=== PATIENT | male | born 1960 | race Caucasian/White ===

== ENCOUNTER 2018-02-25 23:57 | Observation (INO) ==
[2018-02-26] MEDS ORDERED: Sod Chloride 0.9% Inj 1,000 ML IV.SIG SCH ×2 (01:45→05:00)
[2018-02-26 02:00] LABS: Baso % (Auto) 0.3 % (0.0-2.0); Eos % (Auto) 0.5 % (0.0-4.0); Hematocrit 47.1 % (39.0-51.0); Hemoglobin 16.1 gm/dL (13.0-17.0); Lymph # (Auto) 2.5 th/mm3 (1.0-4.8); Lymph % (Auto) 30.4 % (9.0-44.0); Mean Corpuscular HGB Conc 34.2 % (32.0-36.0); Mean Corpuscular Hemoglobin 31.2 pg (27.0-34.0); Mean Corpuscular Volume 91.3 fL (80.0-100.0); Mean Platelet Volume 7.4 fL (7.0-11.0); Mono # (Auto) 0.8 th/mm3 (0.0-0.9); Mono % (Auto) 9.2 % (0.0-8.0); Neut # (Auto) 4.9 th/mm3 (1.8-7.7); Neut % (Auto) 59.6 % (16.0-70.0); Platelet Count 203 th/mm3 (150-450); Red Blood Count 5.16 mil/mm3 (4.50-5.90); Red Cell Distribution Width 14.2 % (11.6-17.2); White Blood Count 8.2 th/mm3 (4.0-11.0)
--- NOTE | 2018-02-26 02:14 | ED ---
HPI General Chief complaint: Medical Clearance Stated complaint: Pos OD Time Seen by Provider: 02/26/18 01:16 Source: patient Mode of arrival: ambulatory Limitations: no limitations History of Present Illness HPI narrative: The patient is 57 years old and arrives to the ED via private vehicle. He reports drinking alcohol and abusing cocaine for the past 5 days. He reports not sleeping. He has epigastric pain as well as chest pain retrosternal in location. No radiation. No fever. Patient denies suicidal or homicidal ideation. He denies any similar prior conduct. Patient denies drug abuse otherwise. Associated symptoms include decreased appetite. Related Data Home Medications Medication Instructions Recorded Confirmed No Known Home Medications 02/26/18 02/26/18 Allergies Allergy/AdvReac Type Severity Reaction Status Date / Time No Known Allergies Allergy Verified 02/26/18 01:13 Review of Systems ROS: all other systems reviewed are negative [facility] Medical History Medical History Alcohol abuse (Acute) Cocaine abuse (Acute) Surgical History Surgical History H/O inguinal hernia repair (Acute) Social History Social History Substance History: Active Abuse Smoking Status: Current every day smoker Tobacco Type: Cigarettes How Often Do You Have a Drink Containing Alcohol: 4 or more times a week Recent Travel in [facility] within the Last 8 Weeks: No Recent Out of Country Travel within the Last 8 Weeks: No Substance Abuse Detail Crack/Cocaine: Substance Use Status: Active Route Used Substance Abuse: By Mouth and Inhalation Reason for Use: Get High Immunization History Tetanus Immunization: Unsure Exam Narrative Exam Narrative: GENERAL: 57-year-old male well-nourished well-developed mild distress SKIN: Focused skin assessment warm/dry. HEAD: Atraumatic. Normocephalic. EYES: Pupils equal and round. No scleral icterus. No injection or drainage. ENT: No nasal bleeding or discharge. Mucous membranes pink and moist. NECK: Trachea midline. No JVD. CARDIOVASCULAR: Regular rate and rhythm. No murmur appreciated. RESPIRATORY: No accessory muscle use. Clear to auscultation. Breath sounds equal bilaterally. GASTROINTESTINAL: Abdomen soft, non-tender, nondistended. Hepatic and splenic margins not palpable. MUSCULOSKELETAL: No obvious deformities. No clubbing. No cyanosis. No edema. NEUROLOGICAL: Awake and alert. No obvious cranial nerve deficits. Motor grossly within normal limits. Normal speech. PSYCHIATRIC: Patient denies suicidal/homicidal ideation. Course Initial Documented Vital Signs Temperature 98.3 F 10/16/18 00:35 Pulse Rate 114 H 02/26/18 00:35 Respiratory Rate 16 02/26/18 00:35 Blood Pressure 148/90 H 02/26/18 00:35 Pulse Oximetry 96 02/26/18 00:35 Last Documented Vital Signs Temperature 98.3 F 02/26/18 00:35 Pulse Rate 85 02/26/18 01:20 Respiratory Rate 18 02/26/18 01:20 Blood Pressure 148/90 H 02/26/18 00:35 Pulse Oximetry 100 02/26/18 01:20 Medical Decision Making MDM Narrative Medical decision making narrative: Patient arrives to the ED after a 5-day alcohol and cocaine binge. Workup reveals mild transaminitis as well as an elevated lipase. EKG shows ST elevations in multiple leads with LA depressions in multiple leads. This could reflect pericarditis. Strain from cocaine abuse is also considered. Patient received IV fluids and Ativan. Patient reassessed at about 4:10 AM and is found to be resting comfortably. Case discussed with hospitalist Dr. Vaca. Medical Screen Exam Complete: Yes Emergency Medical Condition: Yes Differential Diagnosis Differential Diagnosis: Coronary disease, cocaine side effects, pancreatitis, gastritis, alcoholism, rhabdomyolysis, kidney failure Lab Data Lab results reviewed: Yes I reviewed the patient's lab results. Result diagrams: 02/26/18 01:40 02/26/18 01:40 Lab Results 02/26/18 02/26/18 Range/Units 01:40 01:40 WBC 8.2 (4.0-11.0) th/mm3 RBC 5.16 (4.50-5.90) mil/mm3 Hgb 16.1 (13.0-17.0) gm/dL Hct 47.1 (39.0-51.0) % MCV 91.3 (80.0-100.0) fL MCH 31.2 (27.0-34.0) pg MCHC 34.2 (32.0-36.0) % RDW 14.2 (11.6-17.2) % Plt Count 203 (150-450) th/mm3 MPV 7.4 (7.0-11.0) fL Neut % (Auto) 59.6 (16.0-70.0) % Lymph % (Auto) 30.4 (9.0-44.0) % Lares % (Auto) 9.2 H (0.0-8.0) % Eos % (Auto) 0.5 (0.0-4.0) % Baso % (Auto) 0.3 (0.0-2.0) % Neut # (Auto) 4.9 (1.8-7.7) th/mm3 Lymph # (Auto) 2.5 (1.0-4.8) th/mm3 Lares # (Auto) 0.8 (0.0-0.9) th/mm3 Eos # (Auto) 0.0 (0.0-0.4) th/mm3 Baso # (Auto) 0.0 (0.0-0.2) th/mm3 WBC Differential . Differential Comment Auto diff final Sodium 139 (136-145) meq/L Potassium 3.8 (3.5-5.1) meq/L Chloride 102 (98-107) meq/L Carbon Dioxide 25.1 (21.0-32.0) meq/L Anion Gap 12 (5-15) meq/L BUN 7 (7-18) mg/dL Creatinine 0.84 (0.60-1.30) mg/dL Estimated GFR Greater than 89 (>89) mL/min Random Glucose 71 L (74-106) mg/dL Calcium 8.2 L (8.5-10.1) mg/dL Total Bilirubin 0.9 (0.2-1.0) mg/dL AST 178 H (15-37) U/L ALT 150 H (12-78) U/L Alkaline Phosphatase 97 (45-117) U/L Total Creatine Kinase 557 H (39-308) U/L CK-MB (CK-2) 4.2 H (0.5-3.6) ng/mL CK-MB (CK-2) % 0.8 (0.0-4.0) % Troponin I Less than 0.02 L (0.02-0.05) ng/mL Total Protein 8.2 (6.4-8.2) g/dL Albumin 3.9 (3.4-5.0) g/dL Lipase 766 H (73-393) U/L Serum Alcohol 144 H (0-5) mg/dL ECG Data Attestation: I personally reviewed and interpreted this ECG as follows: Discharge Plan Discharge Disposition Patient Disposition: 30 Still Patient Physicians Team ED Provider: Timbo Bowers Primary Care Provider: Primary Care Sarahi Casillas Attending Provider: Latha Vaca Status ED Status: Admitted Observation Patient
[2018-02-26 02:21] LABS: Alanine Aminotransferase 150 U/L (12-78); Albumin 3.9 g/dL (3.4-5.0); Anion Gap 12 meq/L (5-15); Aspartate Aminotransferase 178 U/L (15-37); Blood Urea Nitrogen 7 mg/dL (7-18); Calcium 8.2 mg/dL (8.5-10.1); Carbon Dioxide 25.1 meq/L (21.0-32.0); Chloride 102 meq/L (98-107); Glomerular Filtration Rate Greater Than 89 mL/min (>89); Glucose,Random 71 mg/dL (74-106); Lipase 766 U/L (73-393); Potassium 3.8 meq/L (3.5-5.1); Sodium 139 meq/L (136-145)
[2018-02-26 02:25] LABS: Alkaline Phosphatase 97 U/L (45-117); Creatine Kinase 557 U/L (39-308); Total Protein 8.2 g/dL (6.4-8.2)
[2018-02-26 02:30] LABS: Alcohol 144 mg/dL (0-5)
[2018-02-26 02:42] LABS: CKMB Percent 0.8 % (0.0-4.0); Creatine Kinase MB 4.2 ng/mL (0.5-3.6)
[2018-02-26] MEDS ORDERED: Bisacodyl 10 MG Supp RECTAL PRN (04:51)
[2018-02-26] MEDS ORDERED: Acetaminophen 325 MG Tablet PO PRN (04:51)
[2018-02-26] MEDS ORDERED: Haloperidol Inj 5 MG/ML Ampul IV.PUSH PRN ×2 (04:54→05:01)
[2018-02-26] MEDS: Sod Chloride 0.9% Inj 1,000 ML IV.CONT SCH ×2 (05:03→15:35)
[2018-02-26 08:50] LABS: Bilirubin,Urine Negative (Negative); Clarity,Urine Clear (Clear); Color,Urine Amber (Yellw/Straw); Glucose,Urine (UA) Negative (Negative); Hyaline Casts,Urine 1 /lpf (0-3); Leukocyte Esterase,Urine Negative (Negative); Mucus,Urine Many /lpf (Occasional); Nitrite,Urine Negative (Negative); Specific Gravity,Urine 1.016 (1.002-1.035)
[2018-02-26] MEDS: Folic Acid 1 MG Tablet PO SCH (08:55)
[2018-02-26] MEDS: Multivitamin/Minerals Therapeutic Tablet PO SCH (08:55)
[2018-02-26] MEDS: Senna/Docusate Sodium 8.6/50 MG Tablet PO SCH ×2 (08:55→20:32)
[2018-02-26 08:57] LABS: Creatine Kinase 434 U/L (39-308)
[2018-02-26 09:05] LABS: Amphetamine Screen,Urine Neg (Neg); Barbiturate Screen,Urine Neg (Neg); Cannabinoid Screen,Urine Neg (Neg); Cocaine Screen,Urine Pos (Neg)
[2018-02-26] MEDS: LORazepam 1 MG Tablet PO PRN ×2 (09:05→16:22)
[2018-02-26 09:08] LABS: Opiate Screen,Urine Neg (Neg)
[2018-02-26 09:10] LABS: CKMB Percent 0.8 % (0.0-4.0); Creatine Kinase MB 3.5 ng/mL (0.5-3.6)
[2018-02-26 13:26] LABS: Creatine Kinase 370 U/L (39-308)
[2018-02-26 13:37] LABS: CKMB Percent 0.6 % (0.0-4.0); Creatine Kinase MB 2.4 ng/mL (0.5-3.6)
--- NOTE | 2018-02-26 15:37 | P.HPIM ---
History of Present Illness Primary Care Physician: No Primary Care Physician History of Present Illness: This patient is a 57-year-old male with a history of tobacco, cocaine , and alcohol abuse. He presented to our emergency department yesterday with complaints of fatigue yesterday. He says that he had spent the past 5 days been drinking and snorting cocaine. Yesterday he had a few episodes where he felt severely weak and nearly passed out. He did have some epigastric pain and atypical chest pain yesterday. He denies having any fevers and chills, complains of nausea however did not have any episodes of vomiting. The patient is a very poor historian. He is currently living with his father in [place] however his father is upset with him given the patient's current problems with alcohol and cocaine and does not want him to return to his home. Patient denies any shortness of breath or current chest pain, no diarrhea. Past medical history no sniffing a past medical history as per the patient Family history hypertension Social history patient is a [id number]-cafm smoking history, drinks 1 pint of hard alcohol per day, has been snorting cocaine for years. Allergies the patient does not have any known drug allergies Medications the patient does not take any medications. Review of Systems All other systems reviewed negative except as stated in HPI PMFSH - History History Provided By: Patient - Medical History Medical History: Medical History (Last Updated 02/26/18 @ 00:37 by Meseret Simons) Alcohol abuse Cocaine abuse - Surgical History Surgical History: Surgical History (Last Updated 02/26/18 @ 00:37 by Meseret Simons) H/O inguinal hernia repair - Tobacco History Second Hand Smoke Exposure: Yes Tobacco Use In Past 30 Days: Yes Smoking Status: Former smoker Tobacco Type: Cigarettes - Alcohol History How Often Do You Have a Drink Containing Alcohol: 2 to 3 times a week - Substance Use History Substance History: Active Abuse - Substance Use Type Crack/Cocaine Status: Active Route Used: Inhalation Frequency: everyday for the last 5 days Reason for Use: Calm Down - Travel History Recent Travel in the [place] Within the Last 8 Weeks: No Recent Travel Out of the Country Within the Last 8 Weeks: No - Immunization History Tetanus Immunization: Unsure Medications and Allergies Active Medications: Active Medications Acetaminophen (Tylenol) 650 mg PO Q4H PRN PRN Reason: Temp > 100.4 Al Hydroxide/Mg Hydroxide (Milk Of Magnesia Liq) 30 ml PO Q12H PRN PRN Reason: Mild Constipation Bisacodyl (Dulcolax Supp) 10 mg RECTAL DAILY PRN PRN Reason: SEVERE CONSITIPATION Flumazenil (Romazecon Inj) 0.2 mg IV.PUSH Q1M PRN PRN Reason: OVERSEDATION Folic Acid (Folic Acid) 1 mg PO DAILY SHIRA Stop: 03/03/18 08:59 Last Admin: 02/26/18 08:55 Dose: 1 mg Haloperidol Lactate (Haldol Inj) 1 mg IV.PUSH Q15M PRN PRN Reason: for severe agitation Sodium Chloride (Ns Inj) 1,000 mls @ 0 mls/hr IV.SIG BOLUS SHIRA Stop: 02/27/18 01:46 Sodium Chloride (Ns Inj) 1,000 mls @ 0 mls/hr IV.SIG BOLUS SHIRA Stop: 02/27/18 05:01 Sodium Chloride (Ns Inj) 1,000 mls @ 100 mls/hr IV.CONT .Q10H SHIRA Last Admin: 02/26/18 05:03 Dose: 100 mls/hr Lactulose (Lactulose Liq) 30 ml PO DAILY PRN PRN Reason: SEVERE CONSITIPATION Lorazepam (Ativan) 1 mg PO Q4H PRN PRN Reason: for CIWA 8-10 Last Admin: 02/26/18 09:05 Dose: 1 mg Lorazepam (Ativan) 2 mg PO Q2H PRN PRN Reason: for CIWA 11-14 Lorazepam (Ativan Inj) 2 mg IV.PUSH Q2H PRN PRN Reason: for CIWA 11-14 Lorazepam (Ativan Inj) 2 mg IV.PUSH Q1H PRN PRN Reason: for CIWA 15-20 Lorazepam (Ativan Inj) 2 mg IV.PUSH Q15M PRN PRN Reason: for CIWA > 20 Lorazepam (Ativan Inj) 1 mg IV.PUSH Q4H PRN PRN Reason: for CIWA 8-10 Last Admin: 02/26/18 08:09 Dose: 1 mg Multivitamins/Minerals (Theragran-M) 1 tab PO DAILY SHIRA Stop: 03/03/18 08:59 Last Admin: 02/26/18 08:55 Dose: 1 tab Ondansetron HCl (Zofran Inj) 4 mg IV.PUSH Q6H PRN PRN Reason: NAUSEA OR VOMITING Senna/Docusate Sodium (Harriet-Colace) 1 tab PO BID [facility] Last Admin: 02/26/18 08:55 Dose: 1 tab Sennosides (Senokot) 17.2 mg PO Q12H PRN PRN Reason: Moderate Constipation Sodium Chloride (Ns Flush) 2 ml IV.FLUSH PRN PRN PRN Reason: FLUSH AFTER USING IV ACCESS Thiamine HCl (Vitamin B1) 100 mg PO DAILY [facility] Last Admin: 02/26/18 08:55 Dose: 100 mg Allergies Allergy/AdvReac Type Severity Reaction Status Date / Time No Known Allergies Allergy Verified 02/26/18 01:13 Home Medications Medication Instructions Recorded Confirmed Type No Known Home Medications 02/26/18 02/26/18 History Exam Vital signs: Vital Signs 02/26/18 00:35 02/26/18 01:20 02/26/18 04:50 Temperature 98.3 F Pulse Rate 114 H 85 82 Respiratory Rate 16 18 16 Blood Pressure 148/90 H 132/89 Pulse Oximetry 96 100 98 02/26/18 07:45 02/26/18 08:36 02/26/18 08:58 Temperature Pulse Rate 98 H 92 H 94 H Respiratory Rate 16 Blood Pressure 125/84 134/83 Pulse Oximetry 96 97 02/26/18 09:00 02/26/18 10:00 02/26/18 10:30 Temperature Pulse Rate 90 102 H 94 H Respiratory Rate 16 17 Blood Pressure 134/83 128/79 Pulse Oximetry 96 98 02/26/18 10:39 02/26/18 11:00 02/26/18 11:34 Temperature Pulse Rate 98 H 94 H 92 H Respiratory Rate 16 18 15 Blood Pressure 128/79 122/72 Pulse Oximetry 95 02/26/18 12:00 Temperature Pulse Rate 94 H Respiratory Rate 15 Blood Pressure Pulse Oximetry 96 Intake & Output 02/25/18 02/26/18 02/26/18 18:59 06:59 18:59 Output Total 300 / 300 Balance -300 / -300 Weight 60.781 kg 60.78 kg Output: Urine 300 / 300 Other: Weight On Admission 60.78 kg Narrative: General patient appears slightly agitated HEENT extraocular movements are intact, clear oropharyngeal mucosa, no JVD Cardiovascular S1-S2 audible, RRR, no murmurs rubs or gallops Respiratory clear to auscultation bilaterally Abdomen soft, nontender, nondistended, normal bowel sounds Extremities patient has some tremors noted in bilateral upper extremities when he is asked to extend his upper extremity's. Neuro cranial nerves II through XII intact Results - Labs CBC & Chem 7: 02/26/18 01:40 02/26/18 01:40 Labs: Short CBC 02/26/18 Range/Units 01:40 WBC 8.2 (4.0-11.0) th/mm3 Hgb 16.1 (13.0-17.0) gm/dL Hct 47.1 (39.0-51.0) % Plt Count 203 (150-450) th/mm3 BMP 02/26/18 01:40 Sodium 139 Potassium 3.8 Chloride 102 Carbon Dioxide 25.1 BUN 7 Creatinine 0.84 Calcium 8.2 L Cardiac Enzymes 02/26/18 02/26/18 02/26/18 Range/Units 01:40 08:00 12:41 Total Creatine Kinase 557 H 434 H 370 H (39-308) U/L CK-MB (CK-2) 4.2 H 3.5 2.4 (0.5-3.6) ng/mL Troponin I Less than 0.02 L Less than 0.02 L Less than 0.02 L (0.02-0.05) ng/mL Liver Function 02/26/18 Range/Units 01:40 Total Bilirubin 0.9 (0.2-1.0) mg/dL AST 178 H (15-37) U/L ALT 150 H (12-78) U/L Alkaline Phosphatase 97 (45-117) U/L Albumin 3.9 (3.4-5.0) g/dL Urine 02/26/18 Range/Units 08:20 Urine Color Barbra (Yellw/Straw) Urine Clarity Clear (Clear) Urine pH 5.0 (5.0-8.5) Ur Specific [place] 1.016 (1.002-1.035) Urine Protein 100 H (Neg-Trace) mg/dL Urine Glucose (UA) Negative (Negative) mg/dL Caprini VTE Risk Assessment Caprini VTE Risk Assessment: No/Low Risk (score <= 1) Caprini Risk Assessment Model: Point Value = 1 Point Value = 2 Point Value = 3 Point Value = 5 Age 41-60 Minor surgery BMI > 25 kg/m2 Swollen legs Varicose veins or History of unexplained or recurrent spontaneous Oral contraceptives or hormone replacement Sepsis (< 1 month) Serious lung disease, including pneumonia (< 1 month) Abnormal pulmonary function Acute myocardial infarction Congestive heart failure (< 1 month) History of inflammatory bowel disease Medical patient at bed rest Age 61-74 Arthroscopic surgery Major open surgery (> 45 min) Laparoscopic surgery (> 45 min) Malignancy Confined to bed (> 72 hours) Immobilizing plaster cast Central venous access Age >= 75 History of VTE Family history of VTE Factor V Leiden Prothrombin [id number] Lupus anticoagulant Anticardiolipin antibodies Elevated serum homocysteine Heparin-induced thrombocytopenia Other congenital or acquired thrombophilia Stroke (< 1 month) Elective arthroplasty Hip, pelvis, or leg fracture Acute spinal cord injury (< 1 month) Prophylaxis Regimen: Total Risk Factor Score Risk Level Prophylaxis Regimen 0-1 Low Early ambulation 2 Moderate Order ONE of the following: *Sequential Compression Device (SCD) *Heparin 5000 units SQ BID 3-4 Higher Order ONE of the following medications: *Heparin 5000 units SQ TID *Enoxaparin/Lovenox 40 mg SQ daily (WT < 150 kg, CrCl > 30 mL/min) *Enoxaparin/Lovenox 30 mg SQ daily (WT < 150 kg, CrCl > 10-29 mL/min) *Enoxaparin/Lovenox 30 mg SQ BID (WT < 150 kg, CrCl > 30 mL/min) AND/OR *Sequential Compression Device (SCD) 5 or more Highest Order ONE of the following medications: *Heparin 5000 units SQ TID (Preferred with Epidurals) *Enoxaparin/Lovenox 40 mg SQ daily (WT < 150 kg, CrCl > 30 mL/min) *Enoxaparin/Lovenox 30 mg SQ daily (WT < 150 kg, CrCl > 10-29 mL/min) *Enoxaparin/Lovenox 30 mg SQ BID (WT < 150 kg, CrCl > 30 mL/min) AND *Sequential Compression Device (SCD) Assessment and Plan - Plan This patient is a 57-year-old male with a extensive history of tobacco, alcohol , and cocaine use. Patient presented after a 5-day binge of alcohol and cocaine use. He felt severely weak and presented to our emergency department for help. 1. Chest pain likely secondary to cocaine use 2. Elevated lipase 3. Polysubstance abuse 4. Alcohol withdrawal Patient is currently chest pain-free EKG shows normal sinus rhythm no significant acute ST segment or T wave changes. CPK was elevated which is showing a downtrend, 3 sets of troponins are negative. The patient's chest pain is likely epigastric in nature and possibly also due to cocaine use. Lipase was elevated at 766. The patient does not have any significant abdominal pain on physical examination and has a good appetite. He is requesting a p.o. diet. I will repeat the patient's lipase level and start a p.o. diet. Patient was counseled extensively by me on his tobacco, alcohol, and cocaine use. Patient states that he wants help and is not going to use once he leaves the hospital. Case management will be consulted as the patient currently will not have a place to go after he is discharged. Patient's last drink was yesterday, on physical examination mild tremors are apparent. CIWA protocol was initiated, continue IV fluids and multivitamin, thiamine, folate. Patient is ambulatory, no pharmacotherapy for DVT prophylaxis. H&P: Quality - VTE Deep Vein Thrombosis/Pulmonary Embolism Present on Admission: No
--- NOTE | 2018-02-26 15:45 | ECG ---
Date Performed: 02/26/2018 Time Performed: 01:40:36 PTAGE: 57 years EKG: Sinus rhythm POSSIBLE LEFT ATRIAL ENLARGEMENT EARLY REPOLARIZATION BORDERLINE ECG NO PREVIOUS TRACING DOCTOR: Jesús Hanna Interpretating Date/Time 02/26/2018 15:44:09
--- NOTE | 2018-02-26 15:46 | ECG ---
Date Performed: 02/26/2018 Time Performed: 08:02:53 PTAGE: 57 years EKG: Sinus rhythm WITH SINUS ARRHYTHMIA EARLY REPOLARIZATION BORDERLINE ECG PREVIOUS TRACING : 02/26/2018 01.40 Since the previous tracing, no significant change noted DOCTOR: Jesús Hanna Interpretating Date/Time 02/26/2018 15:44:50
[2018-02-26] MEDS: Dextrose 5%/NaCl 0.9% Inj 1,000 ML IV.CONT SCH (16:10)
[2018-02-26 19:39] VITALS: O2SAT 96
[2018-02-27] MEDS: Dextrose 5%/NaCl 0.9% Inj 1,000 ML IV.CONT SCH ×2 (02:13→12:12)
[2018-02-27 04:28] LABS: Baso % (Auto) 0.5 % (0.0-2.0); Eos # (Auto) 0.1 th/mm3 (0.0-0.4); Eos % (Auto) 2.1 % (0.0-4.0); Hematocrit 41.7 % (39.0-51.0); Hemoglobin 14.3 gm/dL (13.0-17.0); Lymph # (Auto) 1.7 th/mm3 (1.0-4.8); Lymph % (Auto) 27.7 % (9.0-44.0); Mean Corpuscular HGB Conc 34.4 % (32.0-36.0); Mean Corpuscular Hemoglobin 31.8 pg (27.0-34.0); Mean Corpuscular Volume 92.4 fL (80.0-100.0); Mean Platelet Volume 7.6 fL (7.0-11.0); Mono # (Auto) 0.6 th/mm3 (0.0-0.9); Mono % (Auto) 9.3 % (0.0-8.0); Neut # (Auto) 3.6 th/mm3 (1.8-7.7); Neut % (Auto) 60.4 % (16.0-70.0); Platelet Count 146 th/mm3 (150-450); Red Blood Count 4.51 mil/mm3 (4.50-5.90); Red Cell Distribution Width 14.2 % (11.6-17.2)
[2018-02-27 05:11] LABS: Alanine Aminotransferase 116 U/L (12-78); Alkaline Phosphatase 75 U/L (45-117); Anion Gap 6 meq/L (5-15); Aspartate Aminotransferase 125 U/L (15-37); Blood Urea Nitrogen 8 mg/dL (7-18); Calcium 7.8 mg/dL (8.5-10.1); Carbon Dioxide 26.4 meq/L (21.0-32.0); Chloride 107 meq/L (98-107); Glomerular Filtration Rate Greater Than 89 mL/min (>89); Glucose,Random 105 mg/dL (74-106); Potassium 3.9 meq/L (3.5-5.1); Sodium 139 meq/L (136-145); Total Protein 6.4 g/dL (6.4-8.2)
[2018-02-27] MEDS: Folic Acid 1 MG Tablet PO SCH (08:34)
[2018-02-27] MEDS: Senna/Docusate Sodium 8.6/50 MG Tablet PO SCH (08:34)
[2018-02-27] MEDS: Multivitamin/Minerals Therapeutic Tablet PO SCH (08:34)
[2018-02-27 08:37] VITALS: RESP 18
[2018-02-27 12:01] VITALS: BP 129/77; PULSE 71; TEMP 98.3
--- NOTE | 2018-02-27 13:16 | P.DS ---
Date of admission: 02/26/18 04:50 Primary care physician: No Primary Care Physician Attending physician on discharge: Dr. Purdy Brief History from admission: This patient is a 57-year-old male with a history of tobacco, cocaine , and alcohol abuse. He presented to our emergency department yesterday with complaints of fatigue yesterday. He says that he had spent the past 5 days been drinking and snorting cocaine. Yesterday he had a few episodes where he felt severely weak and nearly passed out. He did have some epigastric pain and atypical chest pain yesterday. He denies having any fevers and chills, complains of nausea however did not have any episodes of vomiting. The patient is a very poor historian. He is currently living with his father in [place] however his father is upset with him given the patient's current problems with alcohol and cocaine and does not want him to return to his home. Patient denies any shortness of breath or current chest pain, no diarrhea. Past medical history no sniffing a past medical history as per the patient Family history hypertension Social history patient is a [id number] smoking history, drinks 1 pint of hard alcohol per day, has been snorting cocaine for years. DS: Medications - Discharge Medications Prescriptions: chlordiazepoxide HCl 10 mg PO Q8H PRN #30 cap PRN Reason: Alcohol Withdrawal folic acid 1 mg PO DAILY #30 tab hrqtzebv-[id number]-[id number]-calcium-mins [Thera M Plus (ferrous fumarat)] 1 tab PO DAILY # 30 tab thiamine HCl (vitamin B1) 100 mg PO DAILY #30 tab DS: Summary Hospital Course: This patient is a 57-year-old male with a extensive history of tobacco, alcohol , and cocaine use. Patient presented after a 5-day binge of alcohol and cocaine use. He felt severely weak and presented to our emergency department for help. 1. Alcohol withdrawal 2. Chest pain likely secondary to gastric reflux from alcohol abuse. 3. Elevated lipase 4. Cocaine abuse The patient presented to our emergency department initially with a 5-day binge of alcohol and cocaine abuse. He did complain of atypical chest pain and had some nausea on his initial day in her hospital. Initial EKG was done which showed sinus rhythm and no acute ST segment or T wave changes. 3 sets of cardiac enzymes and troponins were negative. The patient did not have any chest pain while he was in our hospital. He has been chest pain-free the patient's atypical chest pain was likely secondary to his alcohol and cocaine abuse. Prior to this hospitalization the patient did not have any previous episodes of chest pain prior to the 5-day binge of alcohol and cocaine abuse as per the patient. The patient was advised to seek medical attention if he has any recurrent chest pain. He was placed on a CIWA protocol while in-house for alcohol withdrawals. He will be given a prescription for Librium, multivitamin, thiamine, folate. He was advised to avoid alcohol especially while on Librium. This was explained in detail to the patient. He understands that if he does not follow these instructions the consequences could potentially be fatal. He was advised to follow-up with a primary care physician in the next 1 week. He should be reevaluated and if he needs to be continued on Librium that can be addressed during the clinic visit. If he continues to have episodes of chest pain he may need a outpatient stress test. The patient also had an elevated lipase on arrival to our emergency department. This is likely secondary to alcohol abuse. On physical examination the patient did not have any abdominal pain subsequent lipase levels showed a downtrend after the initiation of aggressive IV fluid hydration. He was started on a p.o. diet and is tolerating his diet well. The patient will be discharged today he will go to [facility] rehab facility today after being discharged. Specific instructions were given to the patient on how to arrive to the rehab facility. He was counseled extensively by me on his cocaine abuse and the potential dangers of using cocaine. The patient states that he does not want to drink alcohol and does not want to use cocaine any longer and will go to the rehab center today. - Time Spent with Patient Total time spent providing and/or coordinating discharge services: Greater than 30 minutes - Quality: VTE Deep Vein Thrombosis/Pulmonary Embolism Present on Admission: No Exam Vital signs: Vital Signs 02/26/18 15:30 02/26/18 19:37 02/27/18 00:00 Temperature 98.7 F 99.7 F H 99 F Pulse Rate 90 97 H 86 Respiratory Rate 20 17 16 Blood Pressure 122/73 111/79 122/76 Pulse Oximetry 97 96 96 02/27/18 03:42 02/27/18 04:00 02/27/18 07:35 Temperature 98.7 F Pulse Rate 76 84 76 Respiratory Rate 17 Blood Pressure 126/76 Pulse Oximetry 96 02/27/18 08:36 02/27/18 11:02 02/27/18 11:58 Temperature 98.1 F 98.3 F Pulse Rate 76 89 71 Respiratory Rate 18 18 Blood Pressure 122/74 129/77 Pulse Oximetry 96 96 Intake & Output 02/26/18 02/27/18 02/27/18 18:59 06:59 18:59 Intake Total 1900 / 1900 1000 / 1000 1591 / 1591 Output Total 300 / 300 Balance 1600 / 1600 1000 / 1000 1591 / 1591 Weight 60.78 kg Intake: IV 1900 / 1900 1000 / 1000 1000 / 1000 D5W/Normal Saline Inj 1,000 ML 1000 / 1000 1000 / 1000 @ 100 mls/hr IV.CONT .Q10H SHIRA Rx#:[id number] NS Inj 1,000 ML @ 100 mls/hr IV 1900 / 1900 .CONT .Q10H SHIRA Rx#:[id number] Oral 591 / 591 Output: Urine 300 / 300 Other: Weight On Admission 60.78 kg Narrative: General patient in no acute distress, no active tremors. HEENT extraocular movements are intact, clear oropharyngeal mucosa, no JVD Cardiovascular S1-S2 audible, RRR, no murmurs rubs or gallops Respiratory clear to auscultation bilaterally Abdomen soft, nontender, nondistended, normal bowel sounds Extremities no edema 2+ distal pulses in bilateral upper and lower extremities Neuro no neurological deficits. Results Procedures completed during hospitalization: none Labs on day of discharge: Labs from last 24 hours 02/27/18 02/27/18 02/27/18 12:12 08:29 04:20 WBC RBC Hgb Hct MCV MCH MCHC RDW Plt Count MPV Neut % (Auto) Lymph % (Auto) Schley % (Auto) Eos % (Auto) Baso % (Auto) Neut # (Auto) Lymph # (Auto) Schley # (Auto) Eos # (Auto) Baso # (Auto) WBC Differential Differential Comment Sodium 139 Potassium 3.9 Chloride 107 Carbon Dioxide 26.4 Anion Gap 6 BUN 8 Creatinine 0.78 Estimated GFR Greater than 89 POC Glucose 119 H 108 Random Glucose 105 Calcium 7.8 L Total Bilirubin 1.3 H AST 125 H ALT 116 H Alkaline Phosphatase 75 Total Creatine Kinase CK-MB (CK-2) CK-MB (CK-2) % Troponin I Total Protein 6.4 D Albumin 3.0 L D Lipase 02/27/18 02/26/18 02/26/18 04:20 22:58 17:06 WBC 6.0 RBC 4.51 Hgb 14.3 Hct 41.7 MCV 92.4 MCH 31.8 MCHC 34.4 RDW 14.2 Plt Count 146 L MPV 7.6 Neut % (Auto) 60.4 Lymph % (Auto) 27.7 Schley % (Auto) 9.3 H Eos % (Auto) 2.1 Baso % (Auto) 0.5 Neut # (Auto) 3.6 Lymph # (Auto) 1.7 Schley # (Auto) 0.6 Eos # (Auto) 0.1 Baso # (Auto) 0.0 WBC Differential . Differential Comment Auto diff final Sodium Potassium Chloride Carbon Dioxide Anion Gap BUN Creatinine Estimated GFR POC Glucose 107 99 Random Glucose Calcium Total Bilirubin AST ALT Alkaline Phosphatase Total Creatine Kinase CK-MB (CK-2) CK-MB (CK-2) % Troponin I Total Protein Albumin Lipase 02/26/18 02/26/18 12:41 12:41 WBC RBC Hgb Hct MCV MCH MCHC RDW Plt Count MPV Neut % (Auto) Lymph % (Auto) Schley % (Auto) Eos % (Auto) Baso % (Auto) Neut # (Auto) Lymph # (Auto) Schley # (Auto) Eos # (Auto) Baso # (Auto) WBC Differential Differential Comment Sodium Potassium Chloride Carbon Dioxide Anion Gap BUN Creatinine Estimated GFR POC Glucose Random Glucose Calcium Total Bilirubin AST ALT Alkaline Phosphatase Total Creatine Kinase 370 H CK-MB (CK-2) 2.4 CK-MB (CK-2) % 0.6 Troponin I Less than 0.02 L Total Protein Albumin Lipase 166 Discharge Plan - Discharge Disposition Patient Disposition: 01 Discharge Home - Discharge Condition Condition: Good - Discharge Order Discharge Orders: Discharge Order (Routine); Ordered 02/27/18 Ordered By: Kelly Purdy - Physicians Team Primary Care Provider: Primary Care Dulcei,Sarahi Attending Provider: Kelly Purdy
--- NOTE | 2018-02-27 18:29 | ECG ---
Date Performed: 02/26/2018 Time Performed: 12:48:29 PTAGE: 57 years EKG: Sinus rhythm POSSIBLE LEFT ATRIAL ENLARGEMENT BORDERLINE RIGHT AXIS DEVIATION EARLY REPOLARIZATION BORDERLINE ECG PREVIOUS TRACING : 02/26/2018 @ 12.13.52 Since the previous tracing, no significant change note d DOCTOR: Deshaun Warren Interpretating Date/Time 02/27/2018 18:28:32
== END 2018-02-27 13:21 | disposition home or self-care (01) ==
LOC: NEDA 23:57 → NEPE 23:57 → NEDA 02-26 13:32 → NEPFCDU 02-26 13:39
PROVIDERS: ADMIT Hospitalist; ATTEND Hospitalist